=== PATIENT | female | born 1985 | race Caucasian/White ===

== ENCOUNTER 2023-10-24 06:22 | Inpatient (IN) | payer OTHER, SELFPAY ==
[2023-10-24] VITALS (15 sets, daily range): BP systolic 116–134; BP diastolic 66–83; PULSE 69–105; RESP 16–18; TEMP 36.6–37.1; O2SAT 98; BMI 32.4
[2023-10-24 07:49] LABS: Basophils Absolute Auto 0.01 K/uL (0.00-0.30); Basophils Percent Auto 0.1 % (0.0-3.0); Eosinophils Absolute Auto 0.04 K/uL (0.00-0.50); Eosinophils Percent Auto 0.5 % (0.0-7.0); Hematocrit 37.1 % (33.0-51.0); Hemoglobin* 12.3 gm/dL (12.0-16.0); Immature Granulocytes Abs Auto 0.04 K/uL (0.00-0.30); Immature Granulocytes Pct Auto 0.5 %; Mean Corpuscular HGB Conc 33 gm/dL (32-36); Mean Corpuscular Hemoglobin 30 pg (26-34); Mean Corpuscular Volume 91 fL (80-100); Monocytes Percent Auto 7.4 % (0.0-11.0); Neutrophils Percent Auto 79.5 % (42.0-72.0); Platelet Count* 226 K/uL (140-440); RDW Coefficient of Variation % 13.2 % (11.5-15.5); Red Blood Count 4.07 m/uL (4.00-5.20); White Blood Count* 8.11 K/uL (4.50-11.00)
[2023-10-24 07:50] LABS: Slide Review Reflex No
[2023-10-24] MEDS: LACTATED RINGERS 1000 ML 1,000 ML 125 ML IV ×2 (08:05→15:44)
[2023-10-24] MEDS: OXYTOCIN 30 unit/500 ML in NS 30 UNIT/500 ML BAG IVPB (08:05)
--- NOTE | 2023-10-24 12:13 | P.OBHP_ITS ---
OB - H&P: HPI Labor/Induction History of Present Illness Time Seen by Provider: 12:15 Date Seen: 10/24/23 Chief Complaint: The patient is a 38 year old 6 para 4 at 39.2 weeks gestation by early 2nd trimester US, who presents for induction secondary to AMA. Chief complaint: IOL for AMA : 6 Para: 4 Narrative: Rylee Jones is a 38 year old at 39.2 weeks based off early second trimester US who presents today for IOL secondary to AMA. course also notable for R renal pyelectasis identified on ultrasound. Otherwise uncomplicated. She is feeling well. Denies headache, dizziness, RUQ pain, or changes in swelling. History of Present Dating criteria: other (early second trimester US) care: good care Abnormal ultrasound findings: R renal pyelectasis with dilated R proximal ureter Medical complications: none Labs Blood type: A (+) positive Rubella: immune RPR/VDLR: nonreactive GBS status: negative HBsAG: negative Meds Home Medications and Allergies Home Medications Medication Instructions Recorded Confirmed Type No Known Home Medications 10/24/23 10/24/23 History Allergies Allergy/AdvReac Type Severity Reaction Status Date / Time No Known Drug Allergies Allergy Verified 10/24/23 06:47 OB - H&P: Exam Physical Exam: Vital signs: Temp Pulse Resp BP Pulse Ox 98.4 F 69 18 120/69 98 10/24/23 10:34 10/24/23 10:34 10/24/23 06:42 10/24/23 10:34 10/24/23 06:49 Constitutional: Constitutional: no acute distress and cooperative Routine HEENT Exam: Head: Present atraumatic and normocephalic Routine Respiratory Exam: Respiratory: Present CTA bilaterally Routine Cardiovascular Exam: Cardiovascular: RRR Detailed Labor and Delivery Exam: Patient Gravid: Yes Dilation (cm): 3 Effacement (%): 50 Cervix position: mid Consistency: medium Fetus (Single): Station: -3 Amniotic Membrane Status: intact Heart Rate Baseline: 140 Monitor Accelerations: Present Monitor Decelerations: None Skip Locator Variability: Moderate (6-25) OB - Results Labs Labs: Short CBC 10/24/23 Range/Units 07:43 WBC 8.11 (4.50-11.00) K/uL Hgb 12.3 (12.0-16.0) gm/dL Hct 37.1 (33.0-51.0) % Plt Count 226 (140-440) K/uL OB - Problem Based A/P Additional Plan (1) Term : Status: Acute (2) AMA (advanced maternal age) multigravida 35+: Status: Acute Plan admitted for IOL secondary to AMA at 39w2d. GBS negative. - pitocin titration per protocol - AROM when more actively in labor - anticipate
--- NOTE | 2023-10-24 17:26 | PM.OBPNL ---
Subjective Time Seen by Provider: 17:26 Date Seen: 10/24/23 Narrative: Patient has been comfortable; feeling some mild contractions. No bleeding or LOF. Objective Vital Signs: Last Vital Signs Temp 98.4 F 10/24/23 16:03 Pulse 85 10/24/23 14:07 Resp 18 10/24/23 06:42 BP 129/71 10/24/23 16:03 Pulse Ox 98 10/24/23 06:49 Pelvic Exam Dilation (cm): 3 Effacement (%): 70 Station: -3 Assessment Assessment: induction ongoing Station: -3 Amniotic Membrane Status: AROM Heart Rate Baseline: 140 Monitor Accelerations: Present Monitor Decelerations: None Plan Plan: AROM at 17:15 with clear fluid. Continue pitocin titration Anticipate
--- NOTE | 2023-10-24 22:32 | P.OBPN_ITS ---
Subjective Date Seen: 10/24/23 Narrative: Patient feeling more uncomfortable with contractions, feeling more pressure, breathing heavily and using nitrous. Objective Vital Signs: Last Vital Signs Temp 97.9 F 10/24/23 21:40 Pulse 85 10/24/23 21:56 Resp 18 10/24/23 21:40 BP 133/83 10/24/23 21:56 Pulse Ox 98 10/24/23 06:49 Pelvic Exam Dilation (cm): 6 Effacement (%): 90 Station: 0 Contractions Contraction pattern: Regular Pitocin Rate (mU/min): 16 Assessment Station: 0 Amniotic Membrane Status: AROM Heart Rate Baseline: 135 [address] [employer] Variability: Moderate (6-25) Monitor Accelerations: Present Monitor Decelerations: None Plan Plan: - continue pitocin - continue nitrous for pain; okay to have epidural if desired - anticipate
--- NOTE | 2023-10-24 23:48 | W.PM.OBVAGDE ---
OB Procedure Vag Delivery Mother Details Mother Details: The patient is a 38 year-old, 6, now Para 5, admitted on 10/24/23 at 39 weeks 2 Days gestation for IOL secondary to advanced maternal age. Pitocin was started at 08:05 AM and titrated until graeme regularly. AROM performed at 17:15 with clear fluid. Patient utilized nitrous oxide for pain management. Following positional changes to facilitate descent, she rapidly progressed to complete and +4 station. She delivered a viable male at 23:30. Delayed cord clamping was performed. : 6 Para: 5 Weeks Gestation: 39.2 Additional Details Amniotic Membrane Status: AROM Amniotic Membrane Rupture Date: 10/24/23 Amniotic Membrane Rupture Time: 17:15 Amniotic Membrane Fluid Description: Clear Analgesia/Anesthesia Type: Nitrous Oxide Waterbirth: No Pitcoin: Yes Heart: heart tones during second stage were 130s Delivery Details Delivery Date: 10/24/23 Delivery Time: 23:30 Route of delivery: Gender: Male Infant Viability: Alive; Heart Rate Present Position at Delivery: OP Delivery Details: Delivered over intact perineum via spontaneous vaginal delivery. was placed on maternal abdomen.? Cord was clamped and cut after a 60 second delay. Nose and mouth were bulb suctioned.? Infant weight pending. 1 Minute Interval Total Score: 8 5 Minute Interval Total Score: 9 Additional Details Shoulder Dystocia: No Placental Delivery Description: Spontaneous Blood Loss: 50 Laceration: None Episiotomy Description: None Blood Loss Measurement Type: EBL Sponge/Need Count Correct: Yes Cord Vessel Description: 3 Vessels Event Summary Status: Mother and infant were stable after delivery.
[2023-10-25] VITALS (14 sets, daily range): BP systolic 113–130; BP diastolic 58–74; PULSE 71–90; RESP 16; TEMP 36.7–36.8; O2SAT 94–98
[2023-10-25] MEDS: IBUPROFEN 600 MG TABLET PO ×4 (02:31→22:41)
[2023-10-25 06:12] LABS: Hemoglobin* 11.2 gm/dL (12.0-16.0)
--- NOTE | 2023-10-25 07:53 | P.OBPN_ITS ---
OB - PN:Subj Subjective Time Seen by Provider: 07:53 Date Seen: 10/25/23 Patient comments OB post-: no complaints, pain well controlled, tolerating diet and other (voiding without difficulty) infant status: and doing well [place] feeding status: exclusively OB - PN: Obj Exam Physical Exam: Vital signs: Temp Pulse Resp BP Pulse Ox O2 Del Method 98.3 F 89 16 121/66 94 Room Air 10/25/23 04:04 10/25/23 04:04 10/25/23 04:04 10/25/23 04:04 10/25/23 04:04 10/25/23 04:04 Constitutional: Constitutional: no acute distress Routine HEENT Exam: Head: Present atraumatic and normal inspection ENT: Present mucous membranes moist Routine Respiratory Exam: Respiratory: Present CTA bilaterally; Absent crackles Routine Cardiovascular Exam: Cardiovascular: Present RRR, S1 and S2; Absent murmur Routine Abdominal Exam: Abdominal: Present normal bowel sounds and soft Fundus: Present firm Routine Extremities Exam: Extremities: Present full ROM; Absent calf tenderness Routine Neurological Exam: Neurological: Present alert and oriented X3 OB - PN: Obj Data Labs Labs: Laboratory Results - last 24 hr 10/24/23 10/25/23 07:43 06:02 Hgb 11.2 L Blood Type A Positive Antibody Screen NEGATIVE OB - PN: A/P Delivery Assessment and Plan (1) Term : Problem details: s/p Status: Acute (2) AMA (advanced maternal age) multigravida 35+: Status: Acute (3) (normal spontaneous vaginal delivery): Status: Acute Assessment and Plan: day 1, doing well Plan day: 1 Plan: routine care Comments: consultation today anticipate discharge to home tomorrow.
[2023-10-25] MEDS: DOCUSATE SODIUM 100 MG CAPSULE PO (10:15)
[2023-10-25 17:27] LABS: Rapid Plasma Reagin (RPR) Non Reactive (Non Reactive)
[2023-10-25] MEDS: LANOLIN CREAM 1 APPLIC TOPICAL (20:24)
[2023-10-26 01:25] VITALS: BP 119/77; PULSE 88; RESP 16; TEMP 36.6; O2SAT 96
[2023-10-26] MEDS: IBUPROFEN 600 MG TABLET PO (06:11)
[2023-10-26 08:06] VITALS: BP 127/61; PULSE 87; RESP 16; TEMP 36.6; O2SAT 98
--- NOTE | 2023-10-26 08:47 | PM.OBDSVD1 ---
DS: Providers Provider Time Seen by Provider: 08:47 Date Seen: 10/26/23 Date of admission: 10/24/23 06:22 Primary care physician: Ivonne Neff DO Admitting Clinician: Ivonne Neff DO Attending Physician on discharge: Jackie Patel MD Date of Discharge: 10/26/23 DS: Diagnosis Discharge Diagnosis (1) (normal spontaneous vaginal delivery): Status: Acute Problem details: Term , complicated by AMA and late to care, doing well s/p Exam Const: Vital Signs, click to edit/add: Vital Signs - 24 hr 10/25/23 12:00 10/25/23 16:10 10/25/23 20:10 Temperature 98.1 F 98.2 F 98.3 F Pulse Rate [Pulse Oximeter] 85 84 88 Respiratory Rate 16 16 16 Blood Pressure [Ri ght Arm] 115/67 126/74 113/68 Pulse Oximetry 97 98 96 Oxygen Delivery Me thod Room Air Room Air Room Air 10/26/23 01:25 10/26/23 08:06 Temperature 97.8 F 97.9 F Pulse Rate [Pulse Oximeter] 88 87 Respiratory Rate 16 16 Blood Pressure [Ri ght Arm] 119/77 127/61 Pulse Oximetry 96 98 Oxygen Delivery Me thod Room Air Room Air Documenting provider has reviewed patient's vital signs: yes Common normals: no apparent distress, average body habitus and oriented x3 HENMT: Common normals: normocephalic Head and scalp: normocephalic Resp: Common normals: normal respiratory effort, no retractions and clear to auscultation bilaterally Auscultation: clear to auscultation bilaterally Cardio: Common normals: regular rate, regular rhythm, S1 normal heart sound and S2 normal heart sound Rate: regular rate Rhythm: regular rhythm Heart sounds: S1 normal and S2 normal GI: Common normals: soft to palpation Palpation: soft; non-tender : Uterus: 2/U and firm Uterus palpation: uterus nontender Extremity: Common normals: normal to inspection, no calf tenderness and no pedal edema Neuro: Common normals: oriented x3 OB - DS: Summary Hospital Course Hospital Course: The patient is a 38 year old G 6 P 5 at 39.2 weeks gestation that was admitted to the Center on 10/24/23 for induction for AMA. She had an uncomplicated vaginal delivery. She delivered a viable male infant. She is breast feeding. the patient has done well. Peripartum Data Infant delivery method: Vaginal Laceration description: None complications: none Infant Gender: Male Discharge Plan: Home Status at Discharge Functional status at discharge: independent ambulation Overall status at discharge: patient is back to baseline Time Spent with Patient Time attestation: Total time spent providing and/or coordinating discharge services: Time spent: Less than 30 minutes Discharge Plan Discharge Disposition: Home, Self-Care Date of Admission: 10/24/23 06:22 Attending Provider on Discharge: Jackie Patel Primary Care Provider: Ivonne Neff Condition: Improved Anticipated Discharge Date/Time: 10/26/23 08:45 Discharge Medications: No Action No Known Home Medications Discharge Orders: Discharge Order (Routine); Ordered 10/26/23 Ordered By: Jackie Patel Patient Education: OB Vaginal/Breast Feeding Activity Level: Activity as Tolerated Activity Detail: Pelvic rest x 6 weeks Discharge Diet: Regular Follow Up Appointments: Ivonne Neff DO [Primary Care Provider] - (6 weeks ) Forms: MyHealth Info Instructions Discharge Comments: Please follow up with Dr. Neff at 6 weeks , sooner with concerns.
== END 2023-10-26 13:15 | disposition home or self-care (01) | DRG 807 ==
PROVIDERS: Admitting Provider Family Medicine; PCP Family Medicine; Visit Provider Family Medicine
DX: O35.8XX0 Maternal care for other (suspected) fetal abnormality and damage, not applicable or unspecified (principal); Z37.0 Single live birth; Z3A.37 37 weeks gestation of pregnancy
CPT/HCPCS: 36415; 85018; 85025; 86592; 86850; 86900; 86901; A9270; J7120